=== PATIENT | female | born 1965 | race Two or more races ===

== ENCOUNTER 2018-01-11 21:14 | Emergency (ER) | payer OTHER ==
[~2018-01-11] VITALS: Ht 165.1 cm; Wt 56.7 kg
[2018-01-11] MEDS ORDERED: MEDROL4 MG (21:23)
[2018-01-11] MEDS ORDERED: VERAPAMIL ER240 MG (21:23)
[2018-01-11] MEDS ORDERED: TRANDOLAPRIL4 MG (21:24)
[2018-01-11] MEDS ORDERED: HYDROCHLOROTHIA25 MG (21:24)
[2018-01-11] MEDS ORDERED: FOSAMAX70 MG (21:25)
[2018-01-11] MEDS ORDERED: JANUMET XR 1001 EACH (21:25)
[2018-01-11] MEDS ORDERED: LIPITOR40 MG (21:27)
[2018-01-12] MEDS ORDERED: LEVSIN/SL0.125 MG SL (05:08)
[2018-01-12] MEDS ORDERED: ZOFRAN ODT4 MG PO (05:08)
[2018-01-12] MEDS ORDERED: PEPCID40 MG PO (05:08)
== END 2018-01-12 05:28 | disposition home or self-care (01) ==
LOC: ER 21:14
DX: K52.9 Noninfective gastroenteritis and colitis, unspecified (principal)